=== PATIENT | female | born 1985 | race Hispanic/Latino ===

== ENCOUNTER 2024-09-22 20:20 | Day surgery (SDC) | payer OTHER, SELFPAY ==
[2024-09-22] MEDS ORDERED: hydrALAZINE 20 MG/ML VIAL SLOW IVP PRN (21:12)
[2024-09-22 21:38] LABS: Glucose, Urine (Dipstick) Normal (Negative); Leukocyte Negative (Negative); Protein, Urine (Dipstick) Negative (Neg-Trace); Specific Gravity, Urine 1.015 (1.005-1.030)
[2024-09-22 21:52] LABS: RBC/HPF 0-3 HPF (0-3); WBC/HPF 0-3 HPF (0-3)
[2024-09-22 21:53] LABS: Bacteria/HPF Rare-Few HPF (None Seen); Urine Culture Reflex No No
[2024-09-22 22:26] LABS: CAUTI Indications for Culture Pregnancy
[2024-09-22 22:27] LABS: Urine Culture Reflex Yes Yes
[2024-09-22 23:02] VITALS: BMI 35.2
== END 2024-09-22 22:34 | disposition home or self-care (01) ==
LOC: CSHLD/OP 20:20
PROVIDERS: ATTEND Family Medicine
DX: O46.92 Antepartum hemorrhage, unspecified, second trimester (principal); Z3A.21 21 weeks gestation of pregnancy
CPT/HCPCS: 81001; 87086; 87480; 87510; 87660; 99284

== ENCOUNTER 2024-12-28 16:44 | Inpatient (IN) | payer MEDICAID, OTHER ==
[2024-12-28] MEDS ORDERED: Diphenoxylate HCl/Atropine Tablet PO PRN (17:50)
[2024-12-28] MEDS ORDERED: Acetaminophen 500 MG TAB PO PRN (17:50)
[2024-12-28] MEDS ORDERED: Carboprost 250 MCG/ML AMP IM PRN (17:50)
[2024-12-28] MEDS ORDERED: Ondansetron PF 4 MG/2 ML Vial IVP PRN ×4 (17:50→22:26)
[2024-12-28] MEDS ORDERED: Oxytocin 30 units/NS 500 ML 500 ML IV SCH (18:00)
[2024-12-28 18:16] LABS: Hematocrit 34.9 % (34.9-44.5); Hemoglobin 12.1 g/dL (12.0-15.5); Mean Corpuscular Hemoglobin 31.0 pg (27.0-33.0); Mean Corpuscular Volume 89.5 fL (81.6-98.3); Platelet Count 188 10x3/uL (150-450); Red Blood Cell (RBC) Count 3.90 10x6/uL (3.90-5.03); White Blood Cell (WBC) Count 12.18 10x3/uL (3.5-10.5)
[2024-12-28] MEDS ORDERED: Famotidine/PF 20 mg/2ml Vial SLOW IVP PRN (18:18)
[2024-12-28] MEDS ORDERED: Bicitra 30 ML UDCUP PO PRN (18:18)
[2024-12-28] MEDS ORDERED: Azithromycin 500 MG in Sodium Chloride 0.9% 250 ML 250 ML IVPB SCH (18:30)
[2024-12-28] MEDS ORDERED: Meperidine HCl/PF 25 MG (1 mL) VIAL SLOW IVP PRN (19:10)
[2024-12-28] MEDS ORDERED: diphenhydrAMINE 50 MG/ML VIAL IVP PRN (19:10)
[2024-12-28] MEDS ORDERED: Ketorolac Tromethamine 30 MG (1 mL) VIAL IVP PRN (19:10)
[2024-12-28 19:11] LABS: Hep B Surf Ag - L&D Non-Reactive S/CO (NonReactive)
[2024-12-28] MEDS ORDERED: Communication Order-Pharmacy FS SCH ×2 (19:15→23:00)
[2024-12-28] MEDS ORDERED: Ketorolac Tromethamine 30 MG (1 mL) VIAL IVP SCH (19:15)
[2024-12-28 19:17] LABS: Syphilis Antibody Index 0.12 S/CO (<1.00 Non-Reactive)
[2024-12-28 19:21] VITALS: BMI 30.9
[2024-12-28] MEDS ORDERED: Calcium Gluc 4.6 MEQ/10 ML (100 MG/ML) SLOW IVP PRN (19:49)
[2024-12-28] MEDS: hydrALAZINE 20 MG/ML VIAL SLOW IVP PRN ×2 (22:17→22:39)
[2024-12-28] MEDS ORDERED: Lanolin Ointment 7 GM TUBE TOP PRN (22:26)
[2024-12-28] MEDS ORDERED: diphenhydrAMINE 25 MG CAP PO PRN (22:26)
[2024-12-28] MEDS ORDERED: Bisacodyl 10 MG SUPP PR PRN (22:26)
[2024-12-28] MEDS ORDERED: hydrALAZINE 20 MG/ML VIAL SLOW IVP PRN (22:26)
[2024-12-28] MEDS: NIFEdipine XL 30 MG ER.TAB PO SCH (22:50)
[2024-12-28] MEDS ORDERED: Ibuprofen 800 MG TAB PO SCH (23:00)
[2024-12-29] MEDS: Ketorolac Tromethamine 30 MG (1 mL) VIAL IVP SCH (00:19)
[2024-12-29] MEDS: Magnesium Sulfate 20 gm/500 ml 20 GM/500 ML BAG IVPB SCH (03:05)
[2024-12-29] MEDS: cloNIDine 0.1 MG TAB PO PRN (05:35)
[2024-12-29 07:08] LABS: Hematocrit 28.0 % (34.9-44.5); Hemoglobin 9.6 g/dL (12.0-15.5); Mean Corpuscular Hemoglobin 31.1 pg (27.0-33.0); Mean Corpuscular Volume 90.6 fL (81.6-98.3); Platelet Count 162 10x3/uL (150-450); Red Blood Cell (RBC) Count 3.09 10x6/uL (3.90-5.03); White Blood Cell (WBC) Count 16.41 10x3/uL (3.5-10.5)
[2024-12-29] MEDS: Ketorolac Tromethamine 30 MG (1 mL) VIAL IVP PRN (07:12)
[2024-12-29] MEDS ORDERED: Meperidine HCl/PF 25 MG (1 mL) VIAL IM PRN (07:15)
[2024-12-29] MEDS ORDERED: NIFEdipine XL 30 MG ER.TAB PO SCH (09:00)
[2024-12-29] MEDS: NIFEdipine XL 30 MG ER.TAB PO SCH ×2 (09:39→21:16)
[2024-12-29] MEDS: Ferrous Sulfate 325 MG TAB PO SCH ×2 (09:39→21:09)
[2024-12-29] MEDS: HYDROcodone/Acetaminophen 5/325 mg Tablet PO PRN ×2 (18:09→22:06)
[2024-12-29] MEDS: Simethicone Chewable 80 MG TAB PO PRN (21:16)
[2024-12-30] MEDS: hydrALAZINE 20 MG/ML VIAL ONE (00:54)
[2024-12-30] MEDS: CEFAZOLIN 2 GM VIAL ONE (00:54)
[2024-12-30] MEDS: Magnesium Sulfate 20 gm/500 ml 20 GM/500 ML BAG ONE (00:55)
[2024-12-30] MEDS: Azithromycin 500 MG VIAL ONE (00:56)
[2024-12-30] MEDS: Dexamethasone 10 MG/ML VIAL ONE (00:56)
[2024-12-30] MEDS: Oxytocin 10 UNITS/ML VIAL ONE (00:57)
[2024-12-30] MEDS: PHENYLEPHRINE-NS 100 MCG/ML 10 ML SYRINGE ONE ×2 (00:57)
[2024-12-30] MEDS: Ibuprofen 800 MG TAB PO SCH ×2 (00:58→02:08)
[2024-12-30] MEDS: metroNIDAZOLE 500 MG TAB PO SCH (14:58)
[2024-12-31 09:21] VITALS: BP 151/84; TEMP 97.8
== END 2024-12-31 13:45 | disposition home or self-care (01) | DRG 788 ==
LOC: CSHLD/OP 16:44 → CSHLD 18:20 → CSHPED 12-29 20:58
PROVIDERS: ADMIT Family Medicine; ATTEND Family Medicine
PROC: 10D00Z1 Extraction of Products of Conception, Low, Open Approach (ICD-10-PCS; principal; 2024-12-28)
PROC: 4A1HXCZ Monitoring of Products of Conception, Cardiac Rate, External Approach (ICD-10-PCS; 2024-12-28)
DX: O30.033 Twin pregnancy, monochorionic/diamniotic, third trimester (principal); Z3A.35 35 weeks gestation of pregnancy; Z37.2 Twins, both liveborn; O32.1XX0 Maternal care for breech presentation, not applicable or unspecified; O24.429 Gestational diabetes mellitus in childbirth, unspecified control; O14.94 Unspecified pre-eclampsia, complicating childbirth
CPT/HCPCS: 36415; 51702; 85027; 86780; 86850; 86900; 86901; 87340; 88307; 99285; C1889; J0360; J1100; J1885; J2274; J2590; J3475